=== PATIENT | female | born 1940 | race Caucasian/White ===

== ENCOUNTER 2020-05-15 04:14 | Inpatient (IN) | payer MEDICARE ==
[~2020-05-15] VITALS: Ht 165.1 cm; Wt 90.7 kg
[2020-05-15 04:23] VITALS: BP 149/69
[2020-05-15] MEDS ORDERED: GABAPENTIN600 M1 PO (04:44)
[2020-05-15] MEDS ORDERED: XANAX 0.25 MG0.25 MG PO (04:46)
[2020-05-15] MEDS ORDERED: LASIX 40 MG TAB40 MG PO (04:46)
[2020-05-15] MEDS ORDERED: OZOBAX5 MG/5 ML PO (04:46)
[2020-05-15] MEDS ORDERED: CHILDREN'S ASPI81 MG PO (04:47)
[2020-05-15] MEDS ORDERED: HYDROCODON-ACE1 EAC8 PO (04:47)
[2020-05-15] MEDS ORDERED: CELEXA 10 MG TA10 M1 PO (04:48)
[2020-05-15] MEDS ORDERED: SIMVASTATIN80 MG PO (04:48)
[2020-05-15] MEDS ORDERED: TROSPIUM CHLORI20 MG PO (04:48)
[2020-05-15 04:56] LABS: ABSOLUTE EOSINOPHILS 0.3 thou/uL (0.0-0.7); ABSOLUTE LYMPHOCYTES 1.8 thou/uL (0.8-5.3); ABSOLUTE MONOCYTES 0.7 thou/uL (0.0-1.2); BASOPHILS 0.6 %; EOSINOPHILS 3.9 %; HEMATOCRIT 34.2 % (37.0-47.0); HEMOGLOBIN 11.4 gm/dL (12.0-15.0); MCH 30.7 pg (26.0-34.0); MCHC 33.2 g/dL (28.0-37.0); MCV 92.3 fL (80.0-100.0); MONOCYTES 9.6 %; MPV 7.4 fl. (7.2-11.1); NUCLEATED RBCS 0 /100WBC; PLATELET COUNT* 180 thou/uL (150-400); POLYS 58.9 %; RDW-CV 13.2 % (10.5-14.5); WBC 6.8 thou/uL (4.0-11.0)
[2020-05-15 05:15] LABS: CALCIUM 9.1 mg/dL (8.5-10.1); POTASSIUM 3.8 mmol/L (3.5-5.1)
[2020-05-15 05:16] LABS: APTT 24.6 Seconds (25.0-31.3); PROTIME 10.5 Seconds (9.20-11.50)
[2020-05-15 05:26] LABS: ALBUMIN 3.5 g/dL (3.4-5.0); TOTAL BILIRUBIN 0.5 mg/dL (<0.1-1.0); TOTAL PROTEIN 6.3 g/dL (6.4-8.2)
[2020-05-15] MEDS ORDERED: PREDNISONE50 MG PO (06:38)
[2020-05-15] MEDS ORDERED: VENTOLIN HFA 1818 GM INH (06:38)
[2020-05-15 09:33] LABS: BE 7.6 mmol/L (-2 to +3); PO2 76.5 mmHg (75.0-100.0); pH 7.381 (7.340-7.450)
[2020-05-15 09:35] LABS: PCO2 59.6 mmHg (35.0-45.0)
[2020-05-15 10:45] VITALS: BP 122/66
--- NOTE | 2020-05-15 12:23 | EKG ---
[place] [address] ELECTROCARDIOGRAM REPORT Name: JANELLE AMADOR Room: [place] [address] ADM IN ..#: [id number] Admission: 05/15/20 Attend Phys: Russell Thakur, Discharge: Date of : 44 Date of Service: 05/15/20419 Report #: [id number] THIS REPORT FOR: //name// [facility] ED Test Date: 2020-05-15 Test Time: 04:20:51 Pat Name: JANELLE AMADOR Department: Room: [facility] Gender: F Junior Mechanical Engineer: [place] : 1940 Requested By: Primitivo Buckner Order Number: [id number] MD: Gume Duran Measurements Intervals [place] Rate: 93 P: 59 [place]: 143 QRS: 47 QRSD: 82 T: 58 QT: 344 QTc: 428 Interpretive Statements Sinus rhythm No previous ECG available for comparison Electronically Signed On 05-15-2020 12:23:37 [employer] by Gume Duran [email or web address] <ELECTRONICALLY SIGNED> By: Gume Duran MD, [facility] 05/15/20 1223 0420 Gume Duran MD, FAC /EPI
[2020-05-15 14:52] VITALS: BP 122/66
[2020-05-15 15:30] VITALS: BP 147/79
[2020-05-15 20:00] VITALS: BP 131/60
[2020-05-15] MEDS ORDERED: PLAVIX 75 MG TA75 MG PO (22:59)
[2020-05-15] MEDS ORDERED: MELATONIN5 MG PO (23:01)
[2020-05-15 23:30] VITALS: BP 124/54
[2020-05-16 04:22] LABS: MPV 7.9 fl. (7.2-11.1)
[2020-05-16 04:24] LABS: ABSOLUTE LYMPHOCYTES 0.8 thou/uL (0.8-5.3); ABSOLUTE MONOCYTES 0.1 thou/uL (0.0-1.2); ABSOLUTE NEUTROPHILS 5.2 thou/uL (1.6-8.1); BASOPHILS 0.1 %; HEMATOCRIT 32.3 % (37.0-47.0); HEMOGLOBIN 10.7 gm/dL (12.0-15.0); LYMPHOCYTES 12.8 %; MCH 30.4 pg (26.0-34.0); MCHC 33.1 g/dL (28.0-37.0); MCV 91.9 fL (80.0-100.0); NUCLEATED RBCS 0 /100WBC; PLATELET COUNT* 202 thou/uL (150-400); POLYS 85.1 %; RBC 3.51 mil/uL (4.20-5.00); RDW-CV 13.5 % (10.5-14.5); WBC 6.1 thou/uL (4.0-11.0)
[2020-05-16 04:29] LABS: CALCIUM 9.2 mg/dL (8.5-10.1); CREATININE 0.9 mg/dL (0.6-1.3); POTASSIUM 3.8 mmol/L (3.5-5.1)
[2020-05-16 04:30] VITALS: BP 113/68
[2020-05-16 05:23] VITALS: BP 129/62
[2020-05-16 08:00] VITALS: BP 165/70
[2020-05-16 12:48] VITALS: BP 141/69
[2020-05-16 16:54] VITALS: BP 147/65
[2020-05-16] MEDS ORDERED: LATANOPROST 0.2.5 ML OPHTHALMIC (17:31)
[2020-05-16 20:00] VITALS: BP 147/78
[2020-05-16 21:20] LABS: AMP/METHAMP Negative (Negative); BARBITURATES Negative (Negative); BENZODIAZEPINES POSITIVE (Negative); COCAINE Negative (Negative); METHADONE Negative (Negative); OPIATES POSITIVE (Negative); PCP Negative (Negative); THC POSITIVE (Negative)
[2020-05-17] VITALS: BP 155/76
[2020-05-17 04:00] VITALS: BP 132/66
[2020-05-17 05:07] LABS: HEMOGLOBIN 11.2 gm/dL (12.0-15.0); MCH 30.3 pg (26.0-34.0); MCHC 32.8 g/dL (28.0-37.0); MCV 92.6 fL (80.0-100.0); MPV 7.9 fl. (7.2-11.1); NUCLEATED RBCS 0 /100WBC; PLATELET COUNT* 214 thou/uL (150-400); RBC 3.68 mil/uL (4.20-5.00); RDW-CV 13.6 % (10.5-14.5); WBC 8.1 thou/uL (4.0-11.0)
[2020-05-17 05:21] LABS: ALBUMIN 3.4 g/dL (3.4-5.0); CALCIUM 9.2 mg/dL (8.5-10.1); CREATININE 0.9 mg/dL (0.6-1.3); POTASSIUM 3.9 mmol/L (3.5-5.1); TOTAL BILIRUBIN 0.2 mg/dL (<0.1-1.0); TOTAL PROTEIN 6.4 g/dL (6.4-8.2)
[2020-05-17 07:00] LABS: ABSOLUTE LYMPHOCYTES 1.2 thou/uL (0.8-5.3); ABSOLUTE NEUTROPHILS 6.9 thou/uL (1.6-8.1); MYELOCYTES 1 %; PLATELET ESTIMATE ADEQUATE
[2020-05-17 09:45] VITALS: BP 125/57
[2020-05-17 12:51] VITALS: BP 170/71
--- NOTE | 2020-05-17 14:34 | 2DMMODE ---
[place] [address] 2 D/M-MODE ECHOCARDIOGRAM Name: JANELLE AMADOR Room: [address] IN [facility]#: [id number] Admission: 05/15/20 Attend Phys: Russell Thakur, Discharge: Date of : 44 Date of Service: 05/17/20 1434 Report #: [id number] THIS REPORT FOR: cc: Bairon Mcgill MD, Dean L. MD Holkins,Elie Soto MD [facility] ~ APPROVED REPORT Study performed: 05/17/2020 11:12:22 EXAM: Comprehensive 2D, Doppler, and color-flow Echocardiogram Patient Location: In-Patient Room #: [facility] Status: routine BSA: 1.95 HR: 81 bpm BP: 125/57 mmHg Rhythm: NSR Other Information Study Quality: Good Indications Dyspnea 2D Dimensions IVSd: 14.26 (7-11mm) LVOT Diam: 17.77 (18-24mm) LVDd: 35.48 mm PWd: 9.82 (7-11mm) LVDs: 23.27 (25-40mm) Volumes Left Atrial Volume (Systole) LA ESV Index: 32.30 mL/m2 Aortic Valve AoV Peak Geoffrey.: 1.88 m/s AO Peak Gr.: 14.17 mmHg LVOT Max P.53 mmHg AO Mean Gr.: 8.17 mmHg LVOT Mean P.04 mmHg LVOT Max V: 1.28 m/s AO V2 VTI: 41.04 cm LVOT Mean V: 0.79 m/s ERIN (VTI): 1.67 cm2 LVOT V1 VTI: 27.58 [place] [address] 2 D/M-MODE ECHOCARDIOGRAM Name: JANELLE AMADOR Room: [address] M.R.#: [id number] Admission: 05/15/20 Attend Phys: Russell Thakur, Discharge: Date of : 44 Date of Service: 05/17/20 1434 Report #: [id number] Mean Gr.: 5.12 mmHg E/A Ratio: 1.09 MV Decel. Time: 226.34 ms MV E Max Geoffrey.: 1.55 m/s MV PHT: 65.64 ms MVA (PHT): 3.35 cm2 TDI E/Lateral E': 22.14 E/Medial E': 19.38 Medial E' Geoffrey.: 0.08 m/s Lateral E' Geoffrey.: 0.07 m/s Pulmonary Valve PV Peak Geoffrey.: 1.11 m/s PV Peak Gr.: 4.89 mmHg Left Ventricle The left ventricle is normal size. There is normal LV segmental wall motion. There is normal left ventricular wall thickness. Left ventricular systolic function is normal. The left ventricular ejection fraction is within the normal range. LVEF is 55%. The left ventricular diastolic function is normal. Right Ventricle The right ventricle is normal size. The right ventricular systolic function is normal. Atria The left atrium size is normal. The right atrium size is normal. Aortic Valve Mild aortic valve sclerosis. No aortic regurgitation is present. Mild aortic stenosis. Mitral Valve There is mitral annular calcification. There is no mitral valve regurgitation noted. No evidence of mitral valve stenosis. Tricuspid Valve The tricuspid valve is normal in structure. Trace tricuspid regurgitation. Unable to assess PA pressure. Pulmonic Valve The pulmonary valve is normal in structure. There is no pulmonic valvular [place] [address] 2 D/M-MODE ECHOCARDIOGRAM Name: JANELLE AMADOR WADE Room: [address] [place] [facility]#: [id number] Admission: 05/15/20 Attend Phys: Russell Thakur, Discharge: Date of : 44 Date of Service: 05/17/20 1434 Report #: [id number] The aortic root is normal in size. IVC is normal in size and collapses >50% with inspiration. Pericardium There is no pericardial effusion. <Conclusion> The left ventricle is normal size. There is normal left ventricular wall thickness. Left ventricular systolic function is normal. The left ventricular ejection fraction is within the normal range. LVEF is 55%. The right ventricle is normal size. The left atrium size is normal. Mild aortic valve sclerosis. No aortic regurgitation is present. Mild aortic stenosis. There is mitral annular calcification. There is no mitral valve regurgitation noted. No evidence of mitral valve stenosis. The tricuspid valve is normal in structure. IVC is normal in size and collapses >50% with inspiration. There is no pericardial effusion. There is normal LV segmental wall motion. <ELECTRONICALLY SIGNED> By: Elie Morris MD, FACC 05/17/20 1434 1434 1434 Elie Morris MD, FACC /INF
[2020-05-17 16:30] VITALS: BP 174/69
[2020-05-17 20:00] VITALS: BP 148/103
[2020-05-18] VITALS (7 sets, daily range): BP systolic 127–168; BP diastolic 56–83
[2020-05-18 05:11] LABS: ABSOLUTE LYMPHOCYTES 0.7 thou/uL (0.8-5.3); ABSOLUTE MONOCYTES 0.3 thou/uL (0.0-1.2); ABSOLUTE NEUTROPHILS 7.5 thou/uL (1.6-8.1); BASOPHILS 0.2 %; HEMATOCRIT 33.8 % (37.0-47.0); HEMOGLOBIN 11.2 gm/dL (12.0-15.0); LYMPHOCYTES 7.8 %; MCH 30.4 pg (26.0-34.0); MCHC 33.1 g/dL (28.0-37.0); MCV 91.7 fL (80.0-100.0); MONOCYTES 3.1 %; MPV 8.1 fl. (7.2-11.1); NUCLEATED RBCS 0 /100WBC; PLATELET COUNT* 250 thou/uL (150-400); POLYS 88.9 %; RBC 3.69 mil/uL (4.20-5.00); RDW-CV 13.3 % (10.5-14.5); WBC 8.5 thou/uL (4.0-11.0)
[2020-05-18 05:34] LABS: ALBUMIN 3.3 g/dL (3.4-5.0); CALCIUM 9.3 mg/dL (8.5-10.1); CREATININE 1.1 mg/dL (0.6-1.3); POTASSIUM 4.2 mmol/L (3.5-5.1); TOTAL BILIRUBIN 0.3 mg/dL (<0.1-1.0); TOTAL PROTEIN 6.4 g/dL (6.4-8.2)
[2020-05-19 04:13] LABS: ABSOLUTE LYMPHOCYTES 0.8 thou/uL (0.8-5.3); ABSOLUTE MONOCYTES 0.3 thou/uL (0.0-1.2); ABSOLUTE NEUTROPHILS 6.6 thou/uL (1.6-8.1); HEMATOCRIT 35.7 % (37.0-47.0); HEMOGLOBIN 11.5 gm/dL (12.0-15.0); LYMPHOCYTES 9.9 %; MCH 29.6 pg (26.0-34.0); MCHC 32.3 g/dL (28.0-37.0); MCV 91.8 fL (80.0-100.0); MONOCYTES 3.9 %; NUCLEATED RBCS 0 /100WBC; PLATELET COUNT* 244 thou/uL (150-400); POLYS 86.2 %; RBC 3.89 mil/uL (4.20-5.00); RDW-CV 13.3 % (10.5-14.5); WBC 7.6 thou/uL (4.0-11.0)
[2020-05-19 04:30] LABS: CALCIUM 9.5 mg/dL (8.5-10.1); POTASSIUM 4.4 mmol/L (3.5-5.1)
[2020-05-19 07:40] VITALS: BP 153/63
[2020-05-19 12:00] VITALS: BP 144/61
[2020-05-19 17:30] VITALS: BP 172/83
[2020-05-20 09:20] VITALS: BP 128/51
[2020-05-20 20:00] VITALS: BP 145/65
[2020-05-21 08:05] VITALS: BP 115/34
[2020-05-21] MEDS ORDERED: DOXYCYCLINE 10100 MG PO (09:05)
[2020-05-21] MEDS ORDERED: PROTONIX40 M2 PO (09:05)
[2020-05-21] MEDS ORDERED: BROVANA15 MCG/2 M INH (09:05)
[2020-05-21] MEDS ORDERED: LASIX 20 MG TAB20 MG PO (09:05)
[2020-05-21] MEDS ORDERED: HYDROCODON-ACE1 EAC8 PO (09:05)
[2020-05-21] MEDS ORDERED: PREDNISONE 10 M10 M1 PO (09:05)
[2020-05-21] MEDS ORDERED: LORAZEPAM 0.50.5 MG PO (09:05)
[2020-05-21] MEDS ORDERED: IPRAT-ALBUT 0.5-3 ML NEB (09:05)
[2020-05-21] MEDS ORDERED: BUDESONIDE0.5 MG/2 M NEB (09:05)
== END 2020-05-21 14:13 | DRG 177 ==
LOC: M.ERS 04:14 → M.3W 07:00 → M.TBA-ER 07:00 → M.ORTHSURG 07:00 → M.3W 05-18 15:32
PROVIDERS: Emergency Medicine Emergency Medical Services; Internal Medicine; ADMIT Internal Medicine; ATTEND Internal Medicine
DX: J15.6 Pneumonia due to other Gram-negative bacteria (principal); J96.22 Acute and chronic respiratory failure with hypercapnia; J96.21 Acute and chronic respiratory failure with hypoxia; J44.1 Chronic obstructive pulmonary disease with (acute) exacerbation; J44.0 Chronic obstructive pulmonary disease with (acute) lower respiratory infection; F41.9 Anxiety disorder, unspecified; I25.10 Atherosclerotic heart disease of native coronary artery without angina pectoris; Z20.828 Contact with and (suspected) exposure to other viral communicable diseases; I70.8 Atherosclerosis of other arteries; Z66 Do not resuscitate; Z86.73 Personal history of transient ischemic attack (TIA), and cerebral infarction without residual deficits; Z79.82 Long term (current) use of aspirin; Z79.899 Other long term (current) drug therapy